=== PATIENT | female | born 1950 | race Caucasian/White ===

== ENCOUNTER 2018-03-04 09:14 | Day surgery (SDC) ==
[2013-08-25 17:13] VITALS: BMI 46.9
[2018-03-04] MEDS ORDERED: LIDOCAINE 1% 20 ML MDV ID STA (10:00)
[2018-03-04] MEDS ORDERED: VERSED ONE (11:40)
[2018-03-04] MEDS ORDERED: DIPRIVAN 20 ML VIAL IVP ONE (11:40)
[2018-03-04 14:50] VITALS: BP 143/68; TEMP 97.8
--- NOTE | 2018-03-05 10:02 | OP ---
INDICATIONS FOR PROCEDURE: 67-year-old female presents for a colonoscopy exam. She has a history of adenomatous polyps removed from prior colonoscopy. She also has a change in her bowel habits with increasing constipation. MEDICATIONS: SEE ANESTHESIA NOTES. PROCEDURE: COLONOSCOPY, SNARE POLYPECTOMY. REPORT: The risks, benefits, alternatives and limitations were discussed in detail with the patient. Informed consent was obtained. After adequate sedation was achieved, a digital rectal exam revealed good tone, no masses. The colonoscope was introduced into the rectum and advanced under direct visual guidance to the cecum. The cecum was identified by the appendiceal orifice and IC valve. In the cecum there was a sessile, about 5 to 6 mm polyp that I removed by snare technique. In the ascending colon there was a semi sessile 5 mm polyp that I removed by snare technique. In the proximal transverse colon there is a benign slightly raised 4 to 5 mm polyp that I removed by snare technique. No other abnormalities were noted throughout the colon. The prep was good. The withdrawal time was 12 minutes and 53 seconds. The patient tolerated the procedure well with stable vital signs and pulse oximetry throughout. IMPRESSION: 1. Three (3) small polyps removed. RECOMMENDATIONS: 1. High fiber diet. 2. I suggest Miralax daily and I discussed with her how to titrate the dose to help with her constipation. 3. Will see her back in the office as needed. 4. Await pathology results. If everything is benign as expected, recommend repeat colonoscopy again in 3 years, sooner if there are signs and symptoms to indicate otherwise. CC: DR. GRICELDA MARQUIS
== END 2018-03-04 13:10 | disposition home or self-care (01) ==
LOC: SURG 09:14
PROVIDERS: ATTEND Internal Medicine Gastroenterology
DX: K59.00 Constipation, unspecified (principal); D12.3 Benign neoplasm of transverse colon; K63.5 Polyp of colon; Z86.010 Personal history of colon polyps